=== PATIENT | male | born 1985 | race Hispanic/Latino ===

== ENCOUNTER 2023-02-16 04:17 | Emergency (ER) | payer SELFPAY ==
[2023-02-16] MEDS ORDERED: IBUPROFEN 400 MG TAB ONE (05:07)
[2023-02-16] MEDS ORDERED: HYDROCODONE/APAP 10/325 TAB ONE (05:07)
[2023-02-16] MEDS ORDERED: CYCLOBENZAPRINE 10 MG TAB ONE (05:07)
[2023-02-16 05:32] LABS: Specific Gravity 1.015 (1.005-1.030); Urine Bilirubin NEGATIVE (Negative); Urine Blood Negative (Negative); Urine Clarity Clear (Clear); Urine Color Light-Yellow (Yellow); Urine Glucose NEGATIVE (Negative); Urine Protein NEGATIVE (Negative); Urine Urobilinogen Normal (Normal)
[2023-02-16] MEDS ORDERED: PROMETHAZINE 25 MG TABLET ONE (05:34)
[2023-02-16] MEDS ORDERED: KETOROLAC 30 MG/ML INJ ONE (05:35)
[2023-02-16] MEDS ORDERED: NA CHLORIDE 0.9% 1,000 ML ONE (05:35)
[2023-02-16 05:36] LABS: Absolute Lymphocytes (CBC) 3.2 K/uL (0.7-4.9); Hematocrit 46.3 % (39.6-49.0); Lymphocytes % 22.8 % (15.3-44.8); MCV 88.3 fL (80-100); Platelets 273 thou/uL (152-406); RBC Red Blood Cell Count 5.25 M/uL (4.33-5.43)
[2023-02-16 05:56] LABS: Albumin 3.9 g/dL (3.4-5.0); Bilirubin Total 0.8 mg/dL (0.2-1.0); Potassium 3.2 mEq/L (3.5-5.1); Protein, Total 8.3 g/dL (6.4-8.2)
--- NOTE | 2023-02-16 07:12 | ER ---
Nurse's Notes [facility] Name: Bandar Hill Age: 37 yrs Sex: Male : 1985 Arrival Date: 02/16/2023 Time: 04:17 Bed 15 Private MD: Diagnosis: Acute pelvic pain, left groin pain, acute musculature sprain Presentation: 02/16 04:26 Ebola Screen: No symptoms or risks identified at this time. ha1 04:26 Initial Sepsis Screen: Does the patient meet any 2 criteria? No. Patient's initial ha1 sepsis screen is negative. Does the patient have a suspected source of infection? No. Patient's initial sepsis screen is negative. Risk Assessment: Do you want to hurt yourself or someone else? Patient reports no desire to harm self or others. Onset of symptoms was February 16, 2023. 04:26 Acuity: SANTA 3 ha1 Triage Assessment: 04:26 General: Appears comfortable, Behavior is cooperative. Pain: Complains of pain in left ha1 hip and left leg Pain does not radiate. Pain currently is 6 out of 10 on a pain scale. Quality of pain is described as sharp, Aggravated by increased activity. Neuro: Level of Consciousness is awake, alert, obeys commands, Oriented to person, place, time, situation. Cardiovascular: Capillary refill < 3 seconds Patient's skin is warm and dry. Respiratory: Airway is patent Respiratory effort is even, unlabored, Respiratory pattern is regular, symmetrical. GI: No signs and/or symptoms were reported involving the gastrointestinal system. Derm: Skin is pink, warm \T\ dry. Musculoskeletal: Circulation, motion, and sensation intact. Range of motion: intact in all extremities, Reports pain in left leg. Historical: - Allergies: 04:53 No Known Allergies; ha1 - Family history:: not pertinent. Screenin:26 [facility] ED Fall Risk Assessment (Adult) History of falling in the last 3 months, ha1 including since admission No falls in past 3 months (0 pts) Confusion or Disorientation No (0 pts) Intoxicated or Sedated No (0 pts) Impaired Gait No (0 pts) Mobility Assist Device Used No (0 pt) Altered Elimination No (0 pt) Score/Fall Risk Level 0 - 2 = Low Risk Oriented to surroundings, Maintained a safe environment, Educated pt \T\ family on fall prevention, incl call for assistance when getting out of bed. Abuse screen: Denies threats or abuse. Denies injuries from another. Nutritional screening: No deficits noted. Tuberculosis screening: No symptoms or risk factors identified. Assessment: 04:26 Reassessment: see triage assessment. ha1 05:20 Reassessment: Patient and/or family updated on plan of care and expected duration. Pain ha1 level reassessed. Patient is alert, oriented x 3, equal unlabored respirations, skin warm/dry/pink. 06:03 Reassessment: Patient and/or family updated on plan of care and expected duration. Pain ha1 level reassessed. Patient is alert, oriented x 3, equal unlabored respirations, skin warm/dry/pink. Patient states feeling better. Patient states symptoms have improved. 07:00 Reassessment: Patient appears in no apparent distress at this time. Patient and/or kc6 family updated on plan of care and expected duration. Pain level reassessed. Patient is alert, oriented x 3, equal unlabored respirations, skin warm/dry/pink. Vital Signs: 04:26 BP 183 / 90; Pulse 88; Resp 18 S; Temp 97.9; Pulse Ox 97% on R/A; Weight 99.79 kg; ha1 05:25 BP 138 / 76; Pulse 75; Resp 18 S; Pulse Ox 98% on R/A; ha1 05:45 BP 141 / 74; Pulse 75; Resp 18 S; Pulse Ox 98% on R/A; ha1 07:09 BP 132 / 73; Pulse 68; Resp 17 S; Pulse Ox 98% on R/A; kc6 ED Course: 04:17 Patient arrived in ED. am2 04:26 Donovan Paredes MD is Attending Physician. sp4 04:26 Arm band placed on right wrist. ha1 04:26 Patient has correct armband on for positive identification. Bed in low position. Call ha light in reach. Side rails up X 1. Adult w/ patient. 04:44 Ana Rosa Thompson, SUSANNA is Primary Nurse. ha1 04:49 Triage completed. ha1 05:15 Inserted saline lock: 20 gauge in right antecubital area, using aseptic technique. pf1 Blood collected. 05:21 CBC with Diff Sent. pf1 05:21 CMP Sent. pf1 05:21 Lipase Sent. pf1 05:21 Urinalysis w/ reflexes Sent. pf1 06:30 CT Abd/Pelvis - IV Contrast Only In Process Unspecified. EDMS 07:34 No provider procedures requiring assistance completed. IV discontinued, intact, kc6 bleeding controlled, No redness/swelling at site. Pressure dressing applied. Administered Medications: 05:01 Drug: [place] PO 10 mg-325 mg 1 tabs Route: PO; ha1 05:01 Drug: Cyclobenzaprine PO 10 mg Route: PO; ha1 05:01 Drug: Ibuprofen PO 800 mg Route: PO; ha1 05:31 Drug: NS 0.9% IV 1000 ml Route: IV; Rate: 1 bolus; Site: right antecubital; pf1 05:31 Drug: Promethazine PO 25 mg Route: PO; pf1 05:45 Drug: TORadol - Ketorolac IVP 15 mg Route: IVP; Site: right antecubital; ha1 Medication: 07:34 VIS not applicable for this client. kc6 Outcome: 07:11 Discharge ordered by . sp4 07:34 Discharged to home ambulatory, with significant other. kc6 07:34 Condition: improved 07:34 Discharge instructions given to patient, Instructed on discharge instructions, follow up and referral plans. medication usage, Demonstrated understanding of instructions, follow-up care, medications, Prescriptions given X 2. 07:34 Patient left the ED. kc6 Signatures: Dispatcher [employer] EDMS Kristy Calhoun am2 Ana Rosa Thompson RN RN ha1 Peyton Hdez RN RN kc6 Odilia Pinto RN RN pf1 Donovan Paredes MD MD sp4 Corrections: (The following items were deleted from the chart) 04:53 04:44 BP 183 / 90; Pulse 88bpm; Resp 18bpm; Spontaneous; Pulse Ox 97% RA; Temp 97.9F; ha1 ha1 05:01 04:26 Acuity: SANTA 4 ha1 ha1
--- NOTE | 2023-02-16 07:12 | EDPHYS ---
Physician Documentation [facility] Name: Bandar Hill Age: 37 yrs Sex: Male : 1985 Arrival Date: 02/16/2023 Time: 04:17 Bed 15 Private MD: ED Physician Donovan Paredes HPI: 02/16 04:26 This 37 yrs old Male presents to ER via Unassigned with complaints of Groin sp4 Pain - left side. 06:54 37-year-old male presents with acute onset of left groin and left pelvic pain starting sp4 about 3 weeks prior to arrival. Patient states pain is radiating down his left leg. Patient denied pain exacerbation with movement. Patient denied any medical illness. Historical: - Allergies: 04:53 No Known Allergies; ha1 - Family history:: not pertinent. ROS: 06:54 Constitutional: Negative for fever, chills, and weight loss. sp4 06:54 Back: Negative for injury and pain, positive for pelvic pain and left groin pain : Negative for injury, bleeding, discharge, and swelling, positive for pelvic pain and left groin pain 06:54 All other systems are negative. Exam: 06:54 Constitutional: This is a well developed, well nourished patient who is awake, alert, sp4 and in no acute distress. Head/Face: Normocephalic, atraumatic. Eyes: Pupils equal round and reactive to light, extra-ocular motions intact. Lids and lashes normal. Conjunctiva and sclera are not injected. Cornea within normal limits. Periorbital areas with no swelling, redness, or edema. ENT: Nares patent. No nasal discharge, no septal abnormalities noted. Tympanic membranes are normal and external auditory canals are clear. Oropharynx with no redness, swelling, or masses, exudates, or evidence of obstruction, uvula midline. Mucous membranes moist. Neck: Trachea midline, no thyromegaly or masses palpated, and no cervical lymphadenopathy. Supple, full range of motion without nuchal rigidity, or vertebral point tenderness. Chest/axilla: Normal chest wall appearance and motion. Nontender with no deformity. No lesions are appreciated. Cardiovascular: Regular rate and rhythm with a normal S1 and S2. No gallops, murmurs, or rubs. Normal PMI, no JVD. No pulse deficits. Respiratory: Lungs have equal breath sounds bilaterally, clear to auscultation and percussion. No rales, rhonchi or wheezes noted. No increased work of breathing, no retractions or nasal flaring. Abdomen/GI: Soft, non-tender, with normal bowel sounds. No distension or tympany. No guarding or rebound. No evidence of tenderness throughout. Back: No spinal tenderness. No costovertebral tenderness. Skin: Warm, dry with normal turgor. Normal color with no rashes, no lesions, and no evidence of cellulitis. MS/ Extremity: Pulses equal, no cyanosis. Neurovascular intact. Full, normal range of motion. Neuro: Awake and alert, GCS 15, oriented to person, place, time, and situation. Cranial nerves II-XII grossly intact. Motor strength 5/5 in all extremities. Sensory grossly intact. Psych: Awake, alert, with orientation to person, place and time. Behavior, mood, and affect are within normal limits Vital Signs: 04:26 BP 183 / 90; Pulse 88; Resp 18 S; Temp 97.9; Pulse Ox 97% on R/A; Weight 99.79 kg; ha1 05:25 BP 138 / 76; Pulse 75; Resp 18 S; Pulse Ox 98% on R/A; ha1 05:45 BP 141 / 74; Pulse 75; Resp 18 S; Pulse Ox 98% on R/A; ha1 07:09 BP 132 / 73; Pulse 68; Resp 17 S; Pulse Ox 98% on R/A; kc6 MDM: 04:30 Patient medically screened. sp4 06:54 Differential Diagnosis Pelvic pain, pelvic mass, left hip sprain, atypical back pain. sp4 Data reviewed: vital signs, nurses notes, old medical records, lab test result(s), radiologic studies, CT scan. Consideration of Admission/Observation Escalation of care including admission/observation considered. ED course: Patient's blood work is basically revealing mild elevation of WBCs without neutrophil predominance, normal chemistry panel, normal urinalysis.. ED course: Patient exam reveals no inguinal hernias, no testicular mass, no abdominal mass, no groin mass, no lymphadenopathy. Will obtain CT to rule out emergent pelvic problems.. 06:59 ED course: FINDINGS: Lung bases: Unremarkable. No mass. No consolidation. ABDOMEN: sp4 Liver: Unremarkable. No mass. Gallbladder and bile ducts: Unremarkable. No calcified stones. No ductal dilation. Pancreas: No findings to suggest acute pancreatitis. No mass visualized. No ductal dilation. Spleen: Unremarkable. No splenomegaly. Adrenals: Unremarkable. No mass. Kidneys and ureters: Unremarkable. No solid mass. No hydronephrosis. Stomach and bowel: No bowel dilatation or obstruction. No bowel wall thickening. No gastric wall thickening. PELVIS: Appendix: The visualized appendix is normal. No pericecal inflammation to suggest acute appendicitis. Bladder: Unremarkable. No mass. Reproductive: Mild prostate gland enlargement. ABDOMEN and PELVIS: Intraperitoneal space: Unremarkable. No free air. No significant fluid collection. Bones/joints: Scattered vertebral Schmorl's nodes. No acute fracture visualized. No dislocation. Soft tissues: Small left Bochdalek hernia. Vasculature: Unremarkable. No abdominal aortic aneurysm. Lymph nodes: No pathologically enlarged lymph nodes. IMPRESSION: 1. No acute obstructive or inflammatory process identified. Normal appendix. 2. Additional non-emergent findings as above. . ED course: CT today is unremarkable. Based on description patient probably has musculoskeletal type pain either joint sprain, or gluteal sprain, or pelvic musculature sprain. Patient will be prescribed Naprosyn and Flexeril and work note for the next 3 days will be provided. Will advise careful lifting at work.. 02/16 05:00 Order name: CBC with Diff; Complete Time: 06:33 sp4 02/16 05:00 Order name: CMP; Complete Time: 06:33 sp4 02/16 05:00 Order name: Lipase; Complete Time: 06:33 sp4 02/16 05:00 Order name: Urinalysis w/ reflexes; Complete Time: 06:33 sp4 02/16 05:00 Order name: CT Abd/Pelvis - IV Contrast Only sp4 02/16 05:00 Order name: IV Saline Lock; Complete Time: 05:21 sp4 02/16 05:00 Order name: Labs collected and sent; Complete Time: 05:21 sp4 Administered Medications: 05:01 Drug: [place] PO 10 mg-325 mg 1 tabs Route: PO; ha1 05:01 Drug: Cyclobenzaprine PO 10 mg Route: PO; ha1 05:01 Drug: Ibuprofen PO 800 mg Route: PO; ha1 05:31 Drug: NS 0.9% IV 1000 ml Route: IV; Rate: 1 bolus; Site: right antecubital; pf1 05:31 Drug: Promethazine PO 25 mg Route: PO; pf1 05:45 Drug: TORadol - Ketorolac IVP 15 mg Route: IVP; Site: right antecubital; ha1 Disposition Summary: 02/16/23 07:11 Discharge Ordered Location: Home sp4 Problem: new sp4 Symptoms: have improved sp4 Condition: Stable sp4 Diagnosis - Acute pelvic pain, left groin pain, acute musculature sprain sp4 Followup: sp4 - With: Private Physician - When: 7 - 10 days - Reason: Recheck today's complaints Discharge Instructions: - Discharge Summary Sheet sp4 - Pelvic Pain, Male sp4 Forms: - Work release form kc6 - Patient Portal Instructions sp4 Prescriptions: - naproxen 500 mg Oral tablet - take 1 tablet by ORAL route every 12 hours PRN pain; 30 tablet; Refills: 0, sp4 Product Selection Permitted - Cyclobenzaprine 10 mg Oral Tablet - take 1 tablet by ORAL route every 8 hours As needed; 30 tablet; Refills: 0, sp4 Product Selection Permitted Signatures: Dispatcher [employer] Ana Rosa Lynne RN RN ha1 Odilia Pinto RN RN pf1 Donovan Paredes MD MD sp4
[2023-02-16 07:53] VITALS: TEMP 97.9
[2023-02-16 08:02] VITALS: O2SAT 98
[2023-02-16 08:09] VITALS: BP 132/73
--- NOTE | 2023-02-16 20:22 | RAD REPORT ---
EXAM DESCRIPTION: CT Abdomen and Pelvis With Intravenous Contrast CLINICAL HISTORY: The patient is 37 years old and is Male; acute pelvic pain TECHNIQUE: Axial computed tomography images of the abdomen and pelvis with intravenous contrast. S agittal and coronal reformatted images were created and reviewed. This CT exam was performed using one or more of the following dose reduction techniques: automated exposure control, adjustment of t he mA and/or kV according to patient size, and/or use of iterative reconstruction technique. COMPARISON: No relevant prior studies available. FINDINGS: Lung bases: Unremarkable. No mass. No consolidation. ABDOMEN: Liver: Unremarkable. No mass. Gallbladder and bile ducts: Unremarkable. No calcified stones. No ductal dilation. Pancreas: No findings to suggest acute pancreatitis. No mass visualized. No ductal dilation. Spleen: Unremarkable. No splenomegaly. Adrenals: Unremarkable. No mass. Kidneys and ureters: Unremarkable. No solid mass. No hydronephrosis. Stomach and bowel: No bowel dilatation or obstruction. No bowel wall thickening. No gastric wall thickening. PELVIS: Appendix: The visualized appendix is normal. No pericecal inflammation to suggest acute appendici tis. Bladder: Unremarkable. No mass. Reproductive: Mild prostate gland enlargement. ABDOMEN and PELVIS: Intraperitoneal space: Unremarkable. No free air. No significant fluid collection. Bones/joints: Scattered vertebral Schmorl's nodes. No acute fracture visualized. No dislocation. Soft tissues: Small left Bochdalek hernia. Vasculature: Unremarkable. No abdominal aortic aneurysm. Lymph nodes: No pathologically enlarged lymph nodes. IMPRESSION: 1. No acute obstructive or inflammatory process identified. Normal appendix. 2. Additional non-emergent findings as above. Electronically signed by: Katiana Franklin MD 02/16/2023 6:54 AM CDT Due to temporary technical issues with the PACS/Fluency reporting system, reports are being signed by the in house radiologists without review as a courtesy to insure prompt reporting. The interpreting radiologist is fully responsible for the content of the report.
== END 2023-02-16 07:34 | disposition home or self-care (01) ==
LOC: ER 04:17
DX: S39.011A Strain of muscle, fascia and tendon of abdomen, initial encounter (principal); R10.2 Pelvic and perineal pain
CPT/HCPCS: 36415; 74177; 80053; 81003; 83690; 85025; 96374; 99284; J7030; Q0169; Q9967

== ENCOUNTER 2024-06-11 15:54 | Emergency (ER) | payer SELFPAY ==
[2024-06-11] MEDS ORDERED: PANTOPRAZOLE 40 MG INJ ONE (16:54)
[2024-06-11] MEDS ORDERED: NA CHLORIDE 0.9% 1,000 ML ONE (16:54)
[2024-06-11] MEDS ORDERED: dexAMETHasone 10 MG/ML VIAL ONE (16:54)
[2024-06-11 17:00] LABS: Absolute Basophils 0.1 K/uL (0-0.5); Absolute Eosinophils 0.1 K/uL (0-0.5); Absolute Lymphocytes (CBC) 2.8 K/uL (0.7-4.9); Absolute Monocytes 0.9 K/uL (0.1-1.3); Absolute Neutrophil 7.1 K/uL (1.8-8.0); Eosinophils % 1.2 % (0-4.4); Hematocrit 47.9 % (39.6-49.0); Hemoglobin 16.1 g/dL (13.6-17.9); Lymphocytes % 25.8 % (15.3-44.8); MCHC 33.6 g/dL (32.0-36.0); MCV 89.1 fL (80-100); MPV 9.1 fL (7.6-11.3); Monocytes % 7.8 % (3.3-12.3); Neutrophils % 64.2 % (41.7-73.7); Platelets 261 thou/uL (152-406); RBC Red Blood Cell Count 5.38 M/uL (4.33-5.43); Red Cell Distribution Width 13.1 % (12.1-15.2)
[2024-06-11 17:20] LABS: Anion Gap 7.9 mEq/L (5.0-15.0); Bilirubin Total 0.9 mg/dL (0.2-1.0); Globulin 4.1 g/dL (2.3-3.5); Potassium 3.9 mEq/L (3.5-5.1); Protein, Total 8.1 g/dL (6.4-8.2)
--- NOTE | 2024-06-11 18:08 | RAD REPORT ---
EXAM: Soft Tissue Neck W/Contr INDICATION: SORE THROAT Sagittal and coronal reformations were generated. This exam was performed according to our department al dose-optimization program, which includes automated exposure control, adjustment of the mA and/or kV according to patient size and/or use of iterative reconstruction technique. IV contrast was administered. COMPARISON: None. FINDINGS: Mucosal spaces: Nasopharynx, oropharynx, oral cavity, larynx and hypopharynx are normal. No suspiciou s masses are identified. Epiglottis is normal in configuration. True vocal cords cords are normally situated. Piriform sinuses are well-aerated. Lymph Nodes: Lymph node evaluation is limited due to non-contrast technique. No gross pathologic appe aring cervical lymph nodes. Salivary Glands: Unremarkable. Thyroid Gland: Normal Included Intracranial Structures: Grossly unremarkable. Included Orbits: Normal Paranasal Sinuses: Moderate polypoid mucosal thickening in the maxillary antra. Tympanomastoid Cavities: Normal Vascular Structures: Normal Osseous Structures: No acute osseous abnormality. Included Lung Apices: Normal IMPRESSION: No acute or pathologic process identified.
--- NOTE | 2024-06-11 18:26 | ER ---
Nurse's Notes [facility] Name: Bandar Hill Age: 38 yrs Sex: Male : 1985 Arrival Date: 06/11/2024 Time: 15:54 Bed DX2 Private MD: Diagnosis: Cough-HOARSNESS;Tobacco abuse counseling;Tobacco use Presentation: 06/11 16:13 Chief complaint: Patient states: hoarse voice x 4 months. Coronavirus screen: Client jl7 denies travel out of the [place] in the last 14 days. Ebola Screen: Patient denies exposure to infectious person. Patient denies travel to an Ebola-affected area in the 21 days before illness onset. Initial Sepsis Screen: Does the patient meet any 2 criteria? No. Patient's initial sepsis screen is negative. Does the patient have a suspected source of infection? No. Patient's initial sepsis screen is negative. Risk Assessment: Do you want to hurt yourself or someone else? Patient reports no desire to harm self or others. Onset of symptoms was February 2024. 16:13 Method Of Arrival: Ambulatory [facility] 16:13 Acuity: SANTA 4 [facility] Historical: - Allergies: 16:14 No Known Allergies; 7 - Home Meds: 16:14 None [Active]; jl7 - PMHx: 16:14 None; jl7 - PSHx: 16:14 None; jl7 - Infectious Disease History:: Denies. - Social history:: Smoking status: Patient reports the use of cigarette tobacco products, cigars. Assessment: 18:40 Reassessment: Patient appears in no apparent distress at this time. Patient and/or ss family updated on plan of care and expected duration. Pain level reassessed. Patient is alert, oriented x 3, equal unlabored respirations, skin warm/dry/pink. Vital Signs: 16:13 BP 176 / 109; Pulse 80; Resp 17; Temp 98.8(TE); Pulse Ox 98% on R/A; Weight 99.79 kg; jl7 Height 5 ft. 7 in. ; Pain 0/10; 16:13 Body Mass Index 34.46 (99.79 kg, 170.18 cm) [facility] 16:13 Pain Scale: Adult [facility] ED Course: 15:55 Patient arrived in ED. im 16:04 Rajiv Yap MD is Attending Physician. samia 16:14 Triage completed. jl7 16:14 Arm band placed on right wrist. jl7 17:30 Inserted saline lock: 20 gauge in right wrist, using aseptic technique. ,using aseptic ss technique. insertion by Pasquale Lui [facility] Blood collected. Flushed with 10 mL NS. 18:03 CT Soft Tissue Neck W/contr In Process Unspecified. EDMO 18:24 Che Victor MD is Referral Physician. samia 18:39 No provider procedures requiring assistance completed. IV discontinued, intact, ss bleeding controlled, No redness/swelling at site. Pressure dressing applied. Administered Medications: 17:03 Drug: Pantoprazole IVP 40 mg IVP once Route: IVP; Site: right wrist; ss 18:39 Follow up: Response: No adverse reaction ss 17:09 Drug: NS 0.9% IV 1000 ml IV at 1000 ml once; to be given as a bolus over 60 minutes ss Route: IV; Rate: 1000 ml; Site: right wrist; 18:39 Follow up: IV Status: Completed infusion; IV Intake: 1000ml ss 17:09 Drug: Decadron - Dexamethasone IVP 10 mg IVP once Route: IVP; Site: right wrist; ss 18:38 Follow up: Response: No adverse reaction ss 18:38 Not Given (pt left prior to medication administration): [id number] mg ss PO once Intake: 18:39 IV: 1000ml; Total: 1000ml. ss Outcome: 17:30 Discharged to home ambulatory, ss 17:30 Condition: good 17:30 Discharge instructions given to patient, family, Instructed on discharge instructions, follow up and referral plans. medication usage, Demonstrated understanding of instructions, follow-up care, medications, Prescriptions given X 4, 18:25 Discharge ordered by . samia 18:40 Patient left the ED. ss Signatures: Dispatcher [employer] [facility] Rajiv Yap MD MD cha Blanchard, Shelby, RN RN Branden Hines RN RN jl7 Constanza Ram
--- NOTE | 2024-06-11 18:26 | EDPHYS ---
Physician Documentation [facility] Name: Bandar Hill Age: 38 yrs Sex: Male : 1985 Arrival Date: 06/11/2024 Time: 15:54 Bed DX2 Private MD: ED Physician Rajiv Yap HPI: 06/11 18:19 This 38 yrs old Male presents to ER via Ambulatory with complaints of Lost his samia voice for 3 months. 18:19 The patient or guardian reports cough, hoarse voice. Onset: The symptoms/episode samia began/occurred 4 month(s) ago. Modifying factors: The symptoms are alleviated by nothing. the symptoms are aggravated by nothing. The patient or guardian reports airway noise. Severity of symptoms: At their worst the symptoms were mild, in the emergency department the symptoms are unchanged. Associated signs and symptoms: Pertinent positives: rhinorrhea, sore throat. Modifying factors: The symptoms are alleviated by nothing, the symptoms are aggravated by exertion. Severity of symptoms: At their worst the symptoms were moderate in the emergency department the symptoms are unchanged. Historical: - Allergies: 16:14 No Known Allergies; jl7 - Home Meds: 16:14 None [Active]; jl7 - PMHx: 16:14 None; jl7 - PSHx: 16:14 None; jl7 - Infectious Disease History:: Denies. - Social history:: Smoking status: Patient reports the use of cigarette tobacco products, cigars. ROS: 18:20 Constitutional: Negative for fever, chills, and weight loss, Eyes: Negative for injury, samia pain, redness, and discharge, Neck: Negative for injury, pain, and swelling, Cardiovascular: Negative for chest pain, palpitations, and edema, Respiratory: Negative for shortness of breath, cough, wheezing, and pleuritic chest pain, Abdomen/GI: Negative for abdominal pain, nausea, vomiting, diarrhea, and constipation, Back: Negative for injury and pain, : Negative for injury, bleeding, discharge, and swelling, MS/Extremity: Negative for injury and deformity, Skin: Negative for injury, rash, and discoloration, Neuro: Negative for headache, weakness, numbness, tingling, and seizure, 18:20 ENT: Positive for hoarseness, sore throat, Exam: 18:20 Constitutional: This is a well developed, well nourished patient who is awake, alert, samia and in no acute distress. Head/Face: Normocephalic, atraumatic. Eyes: Pupils equal round and reactive to light, extra-ocular motions intact. Lids and lashes normal. Conjunctiva and sclera are non-icteric and not injected. Cornea within normal limits. Periorbital areas with no swelling, redness, or edema. ENT: Nares patent. No nasal discharge, no septal abnormalities noted. Tympanic membranes are normal and external auditory canals are clear. Oropharynx with no redness, swelling, or masses, exudates, or evidence of obstruction, uvula midline. Mucous membranes moist. Neck: Trachea midline, no thyromegaly or masses palpated, and no cervical lymphadenopathy. Supple, full range of motion without nuchal rigidity, or vertebral point tenderness. No Meningismus. Chest/axilla: Normal chest wall appearance and motion. Nontender with no deformity. No lesions are appreciated. Cardiovascular: Regular rate and rhythm with a normal S1 and S2. No gallops, murmurs, or rubs. Normal PMI, no JVD. No pulse deficits. Respiratory: Lungs have equal breath sounds bilaterally, clear to auscultation and percussion. No rales, rhonchi or wheezes noted. No increased work of breathing, no retractions or nasal flaring. Abdomen/GI: Soft, non-tender, with normal bowel sounds. No distension or tympany. No guarding or rebound. No evidence of tenderness throughout. Back: No spinal tenderness. No costovertebral tenderness. Full range of motion. Male : Normal genitalia with no discharge or lesions. Skin: Warm, dry with normal turgor. Normal color with no rashes, no lesions, and no evidence of cellulitis. MS/ Extremity: Pulses equal, no cyanosis. Neurovascular intact. Full, normal range of motion., bilateral aka Neuro: Awake and alert, GCS 15, oriented to person, place, time, and situation. Cranial nerves II-XII grossly intact. Motor strength 5/5 in all extremities. Sensory grossly intact. Cerebellar exam normal. Normal gait. Psych: Awake, alert, with orientation to person, place and time. Behavior, mood, and affect are within normal limits. Vital Signs: 16:13 BP 176 / 109; Pulse 80; Resp 17; Temp 98.8(TE); Pulse Ox 98% on R/A; Weight 99.79 kg; jl7 Height 5 ft. 7 in. ; Pain 0/10; 16:13 Body Mass Index 34.46 (99.79 kg, 170.18 cm) 7 16:13 Pain Scale: Adult jl7 MDM: 16:04 Medical Screening Exam initiated [facility] 18:21 Differential diagnosis: obstructed airway, tracheal injury, bronchitis, flu, URI. [facility] Antibiotic administration: The patient is discharged and will get outpatient antibiotics, Amoxicillin. Differential Diagnosis: Obstructed Airway Bronchitis Influenza Upper Respiratory Infection Sinusitis Pharyngitis Otitis Media Asthma Exacerbation Viral Syndrome Tracheal Injury. Data reviewed: vital signs, nurses notes, lab test result(s), radiologic studies, CT scan. Consideration of Admission/Observation Escalation of care including admission/observation considered. I considered the following discharge prescriptions or medication management in the emergency department Medications were administered in the Emergency Department. See MAR. Independent interpretation of the following test(s) in the Emergency Department CT Scan: My interpretation is CT SOFT TISSUE NECK. Test considered but Not performed: X-ray: NO X RAY. Historians other than the Patient: Spouse/Significant Other: WELL INFORMED. Care significantly affected by the following chronic conditions: TOBACCO. Counseling: I had a detailed discussion with the patient and/or guardian regarding the historical points, exam findings, and any diagnostic results supporting the discharge/admit diagnosis, lab results, radiology results, the need for outpatient follow up, for definitive care, an ENT specialist, a family practitioner. 06/11 16:31 Order name: CBC with Diff; Complete Time: 17:[address] [facility] 06/11 16:31 Order name: Comprehensive Metabolic Panel; Complete Time: 17:[address] [facility] 06/11 16:31 Order name: CT Soft Tissue Neck W/contr; Complete Time: 18:[address] [facility] Administered Medications: 17:03 Drug: Pantoprazole IVP 40 mg IVP once Route: IVP; Site: right wrist; ss 18:39 Follow up: Response: No adverse reaction 17:09 Drug: NS 0.9% IV 1000 ml IV at 1000 ml once; to be given as a bolus over 60 minutes ss Route: IV; Rate: 1000 ml; Site: right wrist; 18:39 Follow up: IV Status: Completed infusion; IV Intake: 1000ml 17:09 Drug: Decadron - Dexamethasone IVP 10 mg IVP once Route: IVP; Site: right wrist; ss 18:38 Follow up: Response: No adverse reaction ss 18:38 Not Given (pt left prior to medication administration): [id number] mg ss PO once Disposition Summary: 06/11/24 18:25 Discharge Ordered Notes: Location: Home [facility] Problem: new samia Symptoms: have improved samia Condition: Stable samia Diagnosis - Cough - HOARSNESS samia - Tobacco abuse counseling [facility] - Tobacco use samia Followup: samia - With: Private Physician - When: 2 - 3 days - Reason: Recheck today's complaints, Re-evaluation by your physician Followup: samia - With: Che Victor MD - When: 2 - 3 days - Reason: Recheck today's complaints, Re-evaluation by your physician Discharge Instructions: - Discharge Summary Sheet [facility] - Hoarseness samia - Self-Destructive Behavior [facility] - Steps to Quit Smoking samia - Health Risks of Smoking [facility] - Cool Mist Vaporizer [facility] - Steps to Quit Smoking, [id number] [facility] - Cough, Adult [facility] Forms: - Medication Reconciliation Form [facility] - Antibiotic Education samia - Prescription Opioid Use [facility] - Patient Portal Instructions [facility] - Leadership Thank You Letter [facility] Prescriptions: - dexamethasone 4 mg Oral tablet - take 1 tablet ORAL route once daily; 5 tablet; Refills: 0, Product Selection [facility] Permitted - Augmentin 875-125 mg Oral Tablet - take 1 tablet ORAL route every 12 hours for 10 days; 20 tablet; Refills: 0, [facility] Product Selection Permitted - Protonix 40 mg Oral tablet, delayed release (enteric coated) - take 1 tablet ORAL route once daily for 21 days; 42 tablet; Refills: 0, Product [facility] Selection Permitted - Tessalon Perles 100 mg Oral capsule - take 2 capsule ORAL route every 8 hours As needed; 30 capsule; Refills: 0, [facility] Product Selection Permitted Signatures: Dispatcher [employer] Rajiv Rojo MD MD cha Blanchard, Shelby RN RN Branden Duenas RN RN jl7 Corrections: (The following items were deleted from the chart) 16:31 16:31 Soft Tissue Neck W/Contr+CT.RAD.BRZ ordered. EDMN EDMS
[2024-06-11 22:10] VITALS: BP 176/109; TEMP 98.8; O2SAT 98
== END 2024-06-11 18:40 | disposition home or self-care (01) ==
LOC: ER 15:54
DX: R05.9 Cough, unspecified (principal); R49.0 Dysphonia; Z72.0 Tobacco use; Z71.6 Tobacco abuse counseling
CPT/HCPCS: 36415; 70491; 80053; 85025; 96361; 96374; 96375; 99284; J1100; J2470; J7030; Q9967